=== PATIENT | male | born 1960 | race Caucasian/White ===

== ENCOUNTER → 2016-08-31 | Outpatient (CLI) | payer OTHER | LOC: FIMAGING 12:57 | PROVIDERS: ATTEND Family Medicine | DX: J40 Bronchitis, not specified as acute or chronic (principal) ==

== ENCOUNTER → 2018-06-25 | Outpatient (CLI) | payer OTHER | LOC: FIMAGING 08:48 | PROVIDERS: ATTEND Otolaryngology | DX: R47.02 Dysphasia (principal); K22.5 Diverticulum of esophagus, acquired; K44.9 Diaphragmatic hernia without obstruction or gangrene ==

== ENCOUNTER 2018-08-09 10:30 | Observation (INO) | payer OTHER ==
[2018-08-16] MEDS ORDERED: LR 1,000 ML IV ONE (09:10)
[2018-08-16] MEDS ORDERED: LIDOCAINE 1% 2 ML INJ ID PRN (09:10)
[2018-08-16] MEDS ORDERED: MIDAZOLAM 2 MG/2 ML VIAL IVP ONE (09:29)
[2018-08-16] MEDS ORDERED: fentaNYL 100 MCG/2 ML INJ ONE (09:30)
--- NOTE | 2018-08-16 09:30 | PDANEPAE ---
ANE Past Medical History - Cardiovascular History Hx Hypertension: Yes Hx Arrhythmias: No Hx Chest Pain: No Hx Coronary Artery / Peripheral Vascular Disease: No Hx CHF / Valvular Disease: No Hx Palpitations: No - Pulmonary History Hx COPD: No Hx Asthma/Reactive Airway Disease: Yes Hx Recent Upper Respiratory Infection: No Hx Oxygen in Use at Home: No Hx Sleep Apnea: No Sleep Apnea Screening Result - Last Documented: Positive Pulmonary History Comment: cold and exercise induced asthma - Neurologic History Hx Cerebrovascular Accident: No Hx Seizures: No Hx Dementia: No - Endocrine History Hx Diabetes: No - Renal History Hx Renal Disorders: No - Liver History Hx Hepatic Disorders: No - Neurological & Psychiatric Hx Hx Neurological and Psychiatric Disorders: No - Cancer History Hx Cancer: No - Congenital Disorder History Hx Congenital Disorders: No - GI History Hx Gastrointestinal Disorders: Yes Gastrointestinal History Comment: Zenker's Diverticulum dysphagia - Other Health History Other Health History: none - Chronic Pain History Chronic Pain: No - Surgical History Prior Surgeries: endoscopies. vasectomy 2012. lasik 2012 ANE Review of Systems Review of Systems: - Exercise capacity METS (RN): 6 METS ANE Patient History - Allergies Allergies/Adverse Reactions: banana Allergy (Verified 08/07/18 10:33) Swelling/neck,face,throat cat dander Allergy (Verified 08/07/18 10:33) Other-Enter Comments melon Allergy (Verified 08/07/18 10:36) Swelling/neck,face,throat AVACADO Allergy (Uncoded 08/07/18 10:36) Swelling/neck,face,throat - Home Medications Home medications: home medication list seen and reviewed Home Medications: Hydrochlorothiazide 08/07/18 [Last Taken Unknown] Valsartan 08/07/18 [Last Taken Unknown] - Anes Hx Anes Hx: no prior problems - Smoking Hx Smoking Status: Never smoked - Family Anes Hx Family Hx Anesthesia Complications: none ANE Labs/Vital Signs - Vital Signs Vital Signs: reviewed preoperatively; see RN documention for details Height: 175.26 cm Weight: 81.647 kg ANE Physical Exam - Airway Neck exam: FROM Mallampati Score: Class 2 Mouth exam: normal dental/mouth exam - Pulmonary Pulmonary: clear to auscultation - Cardiovascular Cardiovascular: regular rate and rhythym - ASA Status ASA Status: II ANE Anesthesia Plan Anesthesia Plan: general endotracheal anesthesia
[2018-08-16] MEDS ORDERED: PROPOFOL 200 MG/20 ML VIAL ONE ×2 (09:31→10:33)
[2018-08-16] MEDS ORDERED: ROCURONIUM 50 MG/5 ML VIAL ONE (09:32)
[2018-08-16] MEDS ORDERED: DEXAMETHASONE 4 MG/ML VIAL ONE ×3 (09:32)
[2018-08-16] MEDS ORDERED: SUCCINYLCHOLINE CHLORIDE 200 MG/10 ML SYR IVP ONE (09:34)
[2018-08-16] MEDS ORDERED: EPINEPHrine 1 MG/ML INJ ONE (09:43)
[2018-08-16] MEDS ORDERED: ceFAZolin 2 GM/DEXTROSE 100 ML IV ONE (10:11)
--- NOTE | 2018-08-16 10:12 | PDHPUP ---
History & Physical Update H&P update statement: This history and physical update is based on an assessment of the patient which was completed after admission or registration (within 24 hours), but prior to the surgery/procedure. H&P update: H&P reviewed & patient examined, no change in patient's condition since H&P completed
[2018-08-16] MEDS ORDERED: CEFAZOLIN 2 GM/DEXTROSE/100 ML BAG IV ONE (10:13)
[2018-08-16] MEDS ORDERED: METOPROLOL TARTRATE 5 MG/5 ML INJ ONE (10:53)
[2018-08-16] MEDS ORDERED: METOCLOPRAMIDE 10 MG/2 ML VIAL ONE (11:10)
[2018-08-16] MEDS ORDERED: ONDANSETRON 4 MG/2 ML VIAL ONE (11:10)
[2018-08-16] MEDS ORDERED: PROMETHAZINE HCL 25 MG/ML INJ IVP PRN (11:14)
[2018-08-16] MEDS ORDERED: ONDANSETRON 4 MG/2 ML VIAL IVP PRN (11:14)
[2018-08-16] MEDS ORDERED: HYDROmorphONE/DILAUDID 2 MG/ML INJ IVP PRN (11:14)
[2018-08-16] MEDS ORDERED: ALBUTEROL 3 ML DEYVIAL IH PRN (11:14)
[2018-08-16] MEDS ORDERED: DIAZEPAM 5 MG/ML 1 ML SYR IVP PRN (11:14)
[2018-08-16] MEDS ORDERED: fentaNYL 100 MCG/2 ML INJ IVP PRN (11:14)
[2018-08-16] MEDS ORDERED: DEXAMETHASONE 4 MG/ML VIAL IVP PRN (11:14)
[2018-08-16] MEDS ORDERED: MEPERIDINE 25 MG/0.5 ML AMP IVP PRN (11:14)
[2018-08-16] MEDS ORDERED: LR 500 ML IV PRN (11:14)
[2018-08-16] MEDS ORDERED: NALOXONE HCL 0.4 MG/ML INJ IVP PRN (11:14)
--- NOTE | 2018-08-16 11:28 | POSTOPPROG ---
Post Op Note Date of Operation: 08/16/18 Surgeon: Kit Jarvis Anesthesiologist: Narcisa Anesthesia: GET(General Endotracheal) Pre-op Diagnosis: zenker's diverticulum with dysphagia Post-op Diagnosis: same Indication: same Procedure: endoscopic division of zenker's diverticulum Findings: zenker's diverticuklum Inf/Abcess present in the surg proc area at time of surgery?: No Depth: Deep Incisional (Fascial) EBL: Minimal Total fluids administered: 500 Complications: none Specimen(s): none
[2018-08-16] MEDS ORDERED: AMOX/CLAVUL 600 MG/5 ML 125 ML BULK BTL PO SCH (11:45)
[2018-08-16] MEDS: HYDROCOD/APAP 7.5/325 IN 15ML UDCUP PO PRN ×3 (13:11→21:47)
--- NOTE | 2018-08-16 13:16 | GOP ---
[f rep st] OPERATIVE REPORT DATE OF OPERATION: 08/16/2018 SURGEON: Helder Jarvis MD ANESTHESIA: General endotracheal. PREOPERATIVE DIAGNOSIS: POSTOPERATIVE DIAGNOSIS: PROCEDURE PERFORMED: Endoscopic repair of Zenker diverticulum. FINDINGS: Large Zenker diverticulum with grumous debris present, treated by endoscopic division and opening of the Zenker diverticulum into normal cervical esophagus. ESTIMATED BLOOD LOSS: 0 mL. INDICATIONS: Dysphagia secondary to Zenker diverticulum. DESCRIPTION OF PROCEDURE: Patient is placed on the operating table in the supine position. After in duction of adequate general endotracheal anesthesia, sterile draping was performed. Sterile eye pads and head drape were placed. A tooth guard was placed to protect the upper incisors. At this point, the Weerda laryngoscope was advanced into the oral cavity and advanced into the oropharynx. The [employer] director [employer] business continuity laryngoscope easily passed into the Zenker diverticulum where a large amount of grumous debris wa s present. This was suctioned clear. The cricopharyngeus muscle was visualized, but only with great difficulty was the esophageal lumen visualized. Approximately 20 minutes was utilized identifying t he esophageal lumen. Once the esophageal lumen was visualized, the laryngoscope was advanced further . It was then opened. At this point, the cricopharyngeus muscle was well visualized, the Zenker diverticulum from the normal esophagus. At this point, the LigaSure, using the blunt-tipped laparoscopic sealer and divider, was used to divide the cricopharyngeus muscle and seal the margin of the esophageal defect. This was utilized, the soft tissues were divided, and it was that residual t issue remained in the region of the cricopharyngeus. Four times the device was fired in order to com pletely divide the cricopharyngeus muscle and widely open the Zenker diverticulum into a normal esoph ageal lumen. Once this had been completed, the Zenker pocket was completely opened into the esophagu s. The procedure was then terminated. Throughout the division of the cricopharyngeus, endoscopic vi sualization was obtained with a jorge telescope. Once this was completed, the Weerda laryngoscope was withdrawn. The tooth guard was removed. The patient was then awakened, transferred to postanesthesi a recovery in stable condition. FLUID REPLACEMENT: 600 mL. COMPLICATIONS: None. /[id number]/MODL
[2018-08-16] MEDS: AMOX TR/K CLAV 400 MG/5 ML 100ML BULK BTL PO SCH ×2 (14:14→21:48)
--- NOTE | 2018-08-16 17:05 | SOAPPROG ---
SOAP Progress Note Assessment/Plan: Assessment: Pt doing well s/p endoscopic stapling of Zenker's diverticulum. Pain is controlled. Tolerating PO Plan: Plans for d/c tomorrow if pt's course continues. 08/16/18 16:55 08/16/18 17:05 Subjective: Pt is resting comfortably in bed, Reports some sore throat but it is controlled. Eating and drinking without difficulty Objective: Vital Signs Temp Pulse Resp BP Pulse Ox 36.7 C 64 14 111/72 93 08/16/18 16:01 08/16/18 16:01 08/16/18 16:01 08/16/18 16:01 08/16/18 16:01 08/15/18 08/16/18 08/17/18 05:59 05:59 05:59 Intake Total 600 Output Total 5 Balance 595 VSS, afebrile, in NAD. - Pending Discharge Pending Discharge Within 24 Hours: Yes Pending Discharge Date: 08/17/18 Pending Discharge Time: 11:00 ICD10 Worksheet Patient Problems: Problems Problem Status Onset Zenker diverticulum Acute - ICD10 Problem Qualifiers (1) Zenker diverticulum
[2018-08-17] MEDS: HYDROCOD/APAP 7.5/325 IN 15ML UDCUP PO PRN (07:12)
--- NOTE | 2018-08-17 07:38 | SOAPPROG ---
SOAP Progress Note Assessment/Plan: pt s/p diverticulum repair. doing very well. Mild sore thraot. tolerating po. Plan:Discharge today. soft food diet. F/u scheduled. 08/17/18 07:37 Objective: Vital Signs Temp Pulse Resp BP Pulse Ox 36.9 C 78 18 108/72 93 08/17/18 04:00 08/17/18 04:00 08/17/18 04:00 08/17/18 04:00 08/17/18 04:00 08/16/18 08/17/18 08/18/18 05:59 05:59 05:59 Intake Total 650 Output Total 5 Balance 645 ICD10 Worksheet Patient Problems: Problems Problem Status Onset Zenker diverticulum Acute
--- NOTE | 2018-08-17 07:39 | PDDCSUM ---
Discharge Summary Discharge Summary: pt s/p diverticulum repair. Doing well. no complications discharge to home. Soft foods. F/u scheduled.
[2018-08-17 08:20] VITALS: BP 119/74
[2018-08-17] MEDS: AMOX TR/K CLAV 400 MG/5 ML 100ML BULK BTL PO SCH (10:03)
[2018-08-17] MEDS ORDERED: AMOX TR/K CLAV 400 MG/5 ML 100ML BULK BTL PO SCH (21:00)
== END 2018-08-17 10:06 | disposition home or self-care (01) ==
LOC: F3E 08-16 09:03
PROVIDERS: ADMIT Otolaryngology; ATTEND Otolaryngology
PROC: 0DQ58ZZ Repair Esophagus, Via Natural or Artificial Opening Endoscopic (ICD-10-PCS; principal; 2018-08-16 10:15)
DX: K22.5 Diverticulum of esophagus, acquired (principal); R13.10 Dysphagia, unspecified
CPT/HCPCS: 43499; G0378; J0171; J0330; J0690; J1100; J2250; J2405; J2704; J2765; J3010

== ENCOUNTER → 2018-10-03 | Outpatient (CLI) | payer OTHER | LOC: FIMAGING 08:28 | PROVIDERS: ATTEND Otolaryngology | DX: K22.5 Diverticulum of esophagus, acquired (principal); K44.9 Diaphragmatic hernia without obstruction or gangrene; Z98.890 Other specified postprocedural states ==